=== PATIENT | male | born 1980 | race Caucasian/White ===

== ENCOUNTER 2022-08-22 15:45 | Outpatient (CLI) | payer OTHER, SELFPAY ==
--- NOTE | 2022-08-22 15:30 | ECG_ITS ---
Measurements Intervals [place] Rate: P: SD: QRS: QRSD: T: QT: QTc: Interpretive Statements SINUS RHYTHM WITH SINUS ARRHYTHMIA NORMAL ECG NO PRIOR ECG FOR COMPARISON Electronically Signed On 08-23-2022 12:49:37 CDT by Sigifredo Zhong D.O.
== END 2022-08-22 15:46 | disposition home or self-care (01) ==
LOC: ANHSURGERY 15:48
PROVIDERS: PCP Pediatrics; Visit Provider Otolaryngology
DX: Z01.818 Encounter for other preprocedural examination (principal); I49.8 Other specified cardiac arrhythmias
CPT/HCPCS: 93005

== ENCOUNTER 2022-09-05 00:26 | Day surgery (SDC) | payer OTHER, SELFPAY ==
--- NOTE | 2022-08-22 14:00 | PC.NURSE ---
Report to the Outpatient Waiting Room, entrance under the green pavilion located off [facility], at time _0630__ on date _09/05/22_. Planned Procedure Time: _0830_. Time changes happen often and if your time is changed the preop area will call you the afternoon before. - You and your visitor will be asked to self-screen and do not enter if you have any COVID symptoms. - Only one visitor is requested with a max of two and NO children visitors are allowed at this time. - The patient visitor may be requested to leave or wait in car when not with patient due to distancing restrictions. - A mask is optional within the hospital at this time. Patients may have clear liquids (water, carbonated beverages, clear teas, apple juice) until 3 hours prior to surgery with a maximum of 20 ounces. - No food from midnight until time of surgery - Infants may have breast milk until 4 hours before surgery, infant formula 6 hours prior to surgery. - Children will be allowed to drink immediately following surgery. If applicable, please bring a bottle or sippy cup to assist with drinking. Juice, water, soda, and popsicles are readily available. For infants on formula, please bring formula the day of surgery. Pacifiers are allowed. Take the following medications with a SIP of water the morning of surgery: __none___ DO NOT STOP ANY OF YOUR OTHER PRESCRIPTION MEDICATIONS PRIOR TO SURGERY ?EXCEPT THE FOLLOWING Medications to discontinue per physician __Supplements and vitamins 3 days prior___ Date to take last dose Please no make-up, nail georgian, hairspray, perfume, deodorant, or body powder the day of surgery. No jewelry (including any body piercings) or valuables the day of surgery, leave them at home. Please take a shower or bath the night before, or the morning of, surgery with an antibacterial soap. Wear comfortable, loose fitting clothing. Children are encouraged to wear pajamas. - Jewelry must be removed prior to entering the operating room. Rings and piercings that are not removed may be cut off. - The hospital will not accept responsibility for valuables. - Please leave all valuables, including medications, at home the day of surgery. If you are going home after surgery, a licensed test driver must drive you home. - NO public transportation without another adult if you receive anesthesia. - We recommend that an adult stay with you for 24 hours following discharge. - We also recommend that you do not drive, make important decision, drink alcoholic beverages, or take any drugs that were not prescribed by your health care provider for at least 24 hours after your discharge time. For Pediatric surgeries, we recommend two adults accompany the child home. Follow any additional instructions given to you from your surgeon. If you or anyone in your household have experienced Covid symptoms in the past week, please notify your surgeon or the nurse liaison at the phone number below for possible testing. Telephone instructions given to _Patient_and asked if any additional questions and then verbalized understanding. Patient advised to call surgeon office or pre surgery nurse liaison [phone] if any additional questions.
[2022-08-22 14:15] VITALS: BMI 39.8
[2022-09-05] VITALS (10 sets, daily range): BP systolic 110–157; BP diastolic 67–115; PULSE 61–90; RESP 12–16; TEMP 36.6–36.7; O2SAT 95–100
[2022-09-05] MEDS: LACTATED RINGERS 1,000 ML 30 ML IV CONT ×2 (06:35→08:31)
[2022-09-05] MEDS: ACETAMINOPHEN 500 MG TABLET 1000 MG PO (06:35)
--- NOTE | 2022-09-05 07:11 | WPDANESEPPF ---
Anes - Initial Pre Proc Eval Procedure: Operation Date: 09/05/22 07:30 Proposed Procedures p Bilateral Tonsillectomy - Ferny Carlson MD Date/Time: 09/05/22 07:11 Surgeon: Ferny Carlson MD Pre Op Diagnosis: chronic tonsillitis Patient Data Age: 42 Gender: M Height: 1.88 m Weight: 140.61 kg Allergies Allergy/AdvReac Type Severity Reaction Status Date / Time codeine Allergy Mild Rash Verified 08/22/22 13:47 Home Medications Medication Instructions Recorded Confirmed Type aspirin 81 mg tablet,delayed 81 mg PO DAILY 07/19/21 08/22/22 History release (Adult Low Dose Aspirin) cephalexin 500 mg capsule 500 mg PO Q12H #20 caps 07/19/21 08/22/22 Rx diphenhydramine HCl 25 mg capsule 25 mg PO Q6H PRN Allergic Symptoms 07/19/21 08/22/22 History (Benadryl) loratadine 10 mg tablet (Claritin) 10 mg PO DAILY 07/19/21 08/22/22 History multivitamin 1 tablet PO DAILY 07/19/21 08/22/22 History simvastatin 40 mg tablet 40 mg PO DAILY 07/19/21 08/22/22 History Patient hx anesthesia problems: none Family hx anesthesia problems: none Results Review: All pre-operative results and documents have been reviewed as part of the pre-operative evaluation. [facility] Social History Social History Smoking packs per day: 1.5 Smoking cigarettes per day: 30.0 Years smoked: 22 Smoking pack-years: 33.00 Smoking status: Former smoker Tobacco type: cigarettes Smoking end date: 05/26/19 Alcohol intake: current Alcohol use details: Maybe 3 times a year Substance use: never Substance use type: does not use Last use: 05/26/2019 Living arrangements: with family Spiritual care concerns: No Anes - Eval Final PreProcedure Day of Procedure 09/05/22 07:11 Patient weight: obese Heart: regular rate and rhythm Lungs: clear to auscultation Airway: Mallampati scale class II Neurological: alert and oriented Last oral intake: >/= 8 hours ASA classification: III Emergent: no Anesthetic plan: proceed Anesthesia type and monitoring: general ETT and standard monitoring Results Review: All pre-operative results and documents have been reviewed as part of the pre-operative evaluation. Informed Consent: The patient's anesthetic plan and its attendant risks and benefits were discussed with the patient/family/POA. Questions were solicited and answers provided to the satisfaction of the patient/family/POA.
--- NOTE | 2022-09-05 07:14 | PM.IMHP ---
H&P: HPI History of Present Illness Date/Time: 09/05/22 07:14 Chief Complaint: chronic tonsillitis Narrative: chronic tonsillitis Review of Systems Review of Systems: All systems reviewed & are unremarkable except as noted in HPI and below [facility] Social History Social History Smoking packs per day: 1.5 Smoking cigarettes per day: 30.0 Years smoked: 22 Smoking pack-years: 33.00 Smoking status: Former smoker Tobacco type: cigarettes Smoking end date: 05/26/19 Alcohol intake: current Alcohol use details: Maybe 3 times a year Substance use: never Substance use type: does not use Last use: 05/26/2019 Living arrangements: with family Spiritual care concerns: No Meds Home Medications and Allergies Home Medications Medication Instructions Recorded Confirmed Type aspirin 81 mg tablet,delayed 81 mg PO DAILY 07/19/21 08/22/22 History release (Adult Low Dose Aspirin) cephalexin 500 mg capsule 500 mg PO Q12H #20 caps 07/19/21 08/22/22 Rx diphenhydramine HCl 25 mg capsule 25 mg PO Q6H PRN Allergic Symptoms 07/19/21 08/22/22 History (Benadryl) loratadine 10 mg tablet (Claritin) 10 mg PO DAILY 07/19/21 08/22/22 History multivitamin 1 tablet PO DAILY 07/19/21 08/22/22 History simvastatin 40 mg tablet 40 mg PO DAILY 07/19/21 08/22/22 History Allergies Allergy/AdvReac Type Severity Reaction Status Date / Time codeine Allergy Mild Rash Verified 08/22/22 13:47 Exam Narrative: 3+ tonsils, rest of exam wnl Assessment and Plan Assessment and plan (1) Tonsillitis: Code(s): J03.90 - Acute tonsillitis, unspecified Status: Acute Plan chronic tonsillitis. Here for tonsillectomy. r/b/a reviewed, pt understands and agrees to proceed. refer to outpt H&P for full details.
--- NOTE | 2022-09-05 07:15 | WPDHPUPDATE1 ---
History and Physical Update Update Date/Time: 09/05/22 07:15 History and Physical has been reviewed, including an updated exam of the patient. There are NO changes in the patient's condition. Risks, benefits, and alternatives have been discussed and questions answered. Patient agrees to proceed with procedure.
--- NOTE | 2022-09-05 08:04 | W.PM.PROC2 ---
Procedure Note - Detailed Date of Procedure 09/05/22 Pre-op Diagnosis chronic tonsillitis Post-op Diagnosis Same Procedure Performed Tonsillectomy Surgeon Ferny Carlson MD Anesthesia General Findings 2+ tonsils, with stones Description of Procedure On the date of procedure the patient was met in the preoperative area and risk and benefits of the procedure reviewed with the patient who elected to proceed with surgery. The patient was brought back to the room by the anesthesia team and placed under general endotracheal anesthesia. Once an adequate plane of anesthesia was obtained a timeout was performed to assure the patient identification the procedure to be performed were correct. The patient was then prepped and draped in the normal fashion for tonsillectomy. A head wrap and shoulder roll were placed. A Roddy-Edis retractor was inserted into the patient's oral cavity and the patient was suspended from the Hale stand. The left tonsil grasped with a curved tonsillar tenaculum retracted medially and removed with electrocautery set on 15 standard. After the tonsil was removed the tonsillar fossa was inspected and no bleeding was noted. The right tonsil was then grasped with a curved tenaculum and retracted medially and removed in an identical manner. The tonsillar fossa was inspected and hemostasis was obtained with suction bovie electrocautery. The patient was taken out of suspension and then placed back into suspension. The tonsillar fossas were once again inspected and no bleeding was noted. A tonsil sponge was used to gently abrade the area and no bleeding was noted. The patient was removed from suspension. The Roddy-Edis retractor was removed from the patient's oral cavity. There was no damage to the patient's teeth or lips. Care of the patient was then returned to anesthesia who extubated in the operating room and transferred the patient to recovery in stable condition without complication. Estimated Blood Loss -20.0 Drains No Packing No Pathology Yes (right and left tonsils) Complications No immediate complications Condition Stable Disposition PACU
[2022-09-05] MEDS: fentaNYL CITRATE INJ (*CRX) 100 MCG/2 ML VIAL 25 MCG IV PUSH ×5 (08:13→08:34)
--- NOTE | 2022-09-05 08:22 | SUR.PHASEI ---
0818: Simple mask removed.
[2022-09-05] MEDS: diphenhydrAMINE HCl INJ 50 MG/ML VIAL 25 MG IV PUSH (08:57)
[2022-09-05] MEDS: oxyCODONE HCL (*CRX) 5 MG TAB IR PO (09:06)
--- NOTE | 2022-09-05 09:22 | SUR.PHASEII ---
4729 DR MARAVILLA AWARE OF BP 157/107 HR 63- CONTINUE TO MONITOR AND INFORM HIM IF DIASTOLIC BP >100
--- NOTE | 2022-09-05 09:54 | SUR.PHASEII ---
0975 PT STATES THEY HAVE A SICK KID AT HOME AND NEED TO GO TO GET HER TO THE DR. BP 151/[address] LOPES TO DISCHARGE PT HOME. INSTRUCTED PT & SPOUSE TO FOLLOW UP WITH PCP IN REGARDS TO BP.
== END 2022-09-05 09:58 | disposition home or self-care (01) ==
PROVIDERS: PCP Pediatrics; Visit Provider Otolaryngology
PROC: (CPT 42826; principal; 2022-09-05 07:30)
DX: J35.01 Chronic tonsillitis (principal); Z87.891 Personal history of nicotine dependence; E66.9 Obesity, unspecified; Z68.39 Body mass index [BMI] 39.0-39.9, adult; Z79.82 Long term (current) use of aspirin
CPT/HCPCS: 42826; 88304; 93005; A9270; J0330; J1100; J1170; J1200; J2250; J2405; J2704; J3010; J7120